=== PATIENT | female | born 1960 | race Caucasian/White ===

== ENCOUNTER 2024-02-01 13:43 | Emergency (ER) | payer OTHER, SELFPAY ==
--- NOTE | ~2024-02-01 | US_ITS ---
EXAMINATION: US venous doppler LE RT DATE: 02/01/2024 14:46 INDICATION: Right calf pain. TECHNIQUE: Grayscale ultrasound images without and with compression and Doppler ultrasound images of the right lower extremity veins were obtained. COMPARISON: None. FINDINGS: The visualized portions of right common femoral vein, profunda (deep) femoral vein, femoral vein, pop liteal vein, peroneal veins, posterior tibial veins, and greater saphenous vein outflow are patent. T here is a small Monahan's cyst. IMPRESSION: 1. No deep venous thrombosis. 2. Small Monahan's cyst. Reviewed, dictated and finalized at location A. [employer]
[2024-02-01 13:54] VITALS: BP 199/100; PULSE 93; RESP 18; TEMP 36.6; O2SAT 100
--- NOTE | 2024-02-01 14:00 | ED.EXTPRO ---
HPI - Extremity Problem General Chief complaint: Extremity Problem,Nontraumatic Stated complaint: Right calf pain, warmth, no redness. Time Seen by Provider: 02/01/24 19:14 Focused HPI: 63-year-old female with history of RA presents to the ED with concerns for DVT her right lower extremity. Patient states a few weeks ago she began having knee pain and her PCP. She was given steroids with concerns for an RA flare. States that did not improve so she went to her welding teacher who again give her another round of steroids. She came to the ED because now the pain seems to have worsened and is now in her calf associated swelling. She denies history of DVT. Denies chest pain or shortness of breath with palpitations, lightheadedness or dizziness. GENERAL: Well-appearing, well-nourished, and in no acute distress. HEAD: Normocephalic, atraumatic. CHEST: Clear to auscultation. ?No respiratory distress. HEART: Regular rate and rhythm.? NEURO: ?Alert and oriented x3. Patient screened in triage and initial orders placed.? ?Additional care and disposition to be based upon?diagnostic testing and treatment. Related Data Home Medications Medication Instructions Recorded Confirmed aspirin 81 mg tablet,delayed 81 mg PO DAILY 11/30/23 12/28/23 release (Adult Aspirin Regimen) atorvastatin 80 mg tablet 80 mg PO DAILY 11/30/23 12/28/23 leflunomide 20 mg tablet 20 mg PO DAILY 11/30/23 12/28/23 losartan 100 mg tablet 100 mg PO DAILY 11/30/23 12/28/23 meloxicam 15 mg tablet 15 mg PO DAILY 11/30/23 12/28/23 multivitamin (Daily Multi-Vitamin 1 tablet PO DAILY 11/30/23 12/28/23 tablet) Allergies Allergy/AdvReac Type Severity Reaction Status Date / Time hydrochlorothiazide AdvReac Intermediate dizzy Verified 02/01/24 13:45 Sulfa (Sulfonamide AdvReac kidney Verified 02/01/24 13:45 Antibiotics) problems PMFSH Past Medical History Medical History Anemia Arthritis Dyslipidemia Hypertension Rheumatoid arthritis Surgical History Surgical History No pertinent past surgical history Family History Family History Mother Hypertension Heart disease Father Heart disease Sibling Hypertension Heart disease Social History Social History Social History: 11/27/23 very confident with medical forms Smoking status: Unknown if ever smoked Do You Feel Safe in your Home?: Yes Lack of Transportation: No Lack of Food: Never True Current Housing: I Have Housing Concerned About Future Housing: No Difficulty Paying Gas/Electric Bills: No Difficulty Paying for Meds: No Currently Unemployed: No Education: High School Diploma/GED Difficulty w/ Childcare or Family Care: No Course Vital Signs Vital signs: Vital Signs Temperature 36.6 C 02/01/24 13:54 Pulse Rate 93 02/01/24 13:54 Respiratory Rate 18 02/01/24 13:54 Blood Pressure 199/100 H 02/01/24 13:54 Pulse Oximetry 100 02/01/24 13:54 Oxygen Delivery Room Air 02/01/24 13:54 Temperature 36.5 C 02/01/24 19:18 Pulse Rate 81 02/01/24 19:18 Respiratory Rate 16 02/01/24 19:18 Blood Pressure 199/96 H 02/01/24 19:18 Pulse Oximetry 98 02/01/24 19:18 Oxygen Delivery Room Air 02/01/24 19:18 MDM - Extremity (Nontraumatic) Lab Data 02/01/24 16:24 02/01/24 16:24 Labs: Lab Results 02/01/24 Range/Units 16:24 WBC 13.0 H (4.5-10.0) K/mm3 RBC 4.23 (4.2-5.4) M/mm3 Hgb 13.0 (12.0-15.0) g/dL Hct 39.8 (37.0-47.0) % MCV 94.1 (80-100) fl MCH 30.7 (26-34) pg MCHC 32.7 (32-36) g/dl RDW 14.4 (11.5-14.5) % Plt Count 333 (150-375) k/mm3 MPV 10.2 (7.4-10.4) fl Immature Gran % (Auto) 0.3 (0-0.5) % Neut % (Auto) 77.4 H (45.5-73.1) % Lymph % (Auto) 15.3 L (18.3-44.2) % [place] % (Auto) 6.5 (2.6-8.5) % Eos % (Auto) 0.0 (0-4.4) % Baso % (Auto) 0.5 (0.2-1.2) % Lymph # (Auto) 1.99 (0.9-3.2) K/mm3 [place] # (Auto) 0.8 H (0.1-0.6) K/mm3 Eos # (Auto) 0.0 (0-0.3) K/mm3 Baso # (Auto) 0.1 (0.0-0.1) K/mm3 Abs Immat Gran (auto) 0.04 H (0.00-0.031) K/mm3 Absolute Neuts (auto) 10.0 H (1.3-6.7) K/mm3 Absolute Nucleated RBC 0.000 (0.0-0.012) K/mm3 Nucleated RBC % 0.0 (0.0-0.2) % PT 13.2 (11.1-14.7) Seconds INR 1.0 APTT 23.4 (22.3-36.8) Seconds Sodium 136 L (137-145) mmol/L Potassium 4.4 (3.4-5.0) mmol/L Chloride 102 (98-107) mmol/L Carbon Dioxide 28 (22-30) mmol/L Anion Gap 6 (4-12) mmol/L BUN 15 (7-17) mg/dL Creatinine 0.80 (0.7-1.0) mg/dL Estim Creat Clear Calc Not Reportable Estimated GFR > 60 (59 - ) Glucose 131 H (65-110) mg/dL Calcium 9.4 (8.4-10.2) mg/dL Discharge Plan Discharge Prescriptions: No Action losartan 100 mg tablet 100 mg PO DAILY atorvastatin 80 mg tablet 80 mg PO DAILY aspirin [Adult Aspirin Regimen] 81 mg tablet,delayed release (DR/EC) 81 mg PO DAILY multivitamin [Daily Multi-Vitamin] Tablet 1 tablet PO DAILY meloxicam 15 mg tablet 15 mg PO DAILY leflunomide 20 mg tablet 20 mg PO DAILY prednisone 10 mg tablet 10 mg PO DAILY PRN (Reason: arthritis) Qty: 30 0RF Follow-up/Referrals: Dior Santos PA-C [Primary Care Provider] -
[2024-02-01 16:31] LABS: Basophils Absolute Auto 0.1 K/mm3 (0.0-0.1); Basophils Percent Auto 0.5 % (0.2-1.2); Hematocrit 39.8 % (37.0-47.0); Immature Granulocyte Absolute 0.04 K/mm3 (0.00-0.031); Immature Granulocyte Percent A 0.3 % (0-0.5); Lymphocytes Absolute Auto 1.99 K/mm3 (0.9-3.2); Lymphocytes Percent Auto 15.3 % (18.3-44.2); Mean Corpuscular HGB Conc 32.7 g/dl (32-36); Mean Corpuscular Hemoglobin 30.7 pg (26-34); Mean Corpuscular Volume 94.1 fl (80-100); Mean Platelet Volume 10.2 fl (7.4-10.4); Monocytes Absolute Auto 0.8 K/mm3 (0.1-0.6); Monocytes Percent Auto 6.5 % (2.6-8.5); Neutrophils Percent Auto 77.4 % (45.5-73.1); Platelet Count Result 333 k/mm3 (150-375); Red Blood Count 4.23 M/mm3 (4.2-5.4); Red Cell Distribution Width 14.4 % (11.5-14.5)
[2024-02-01 16:43] LABS: Anion Gap 6 mmol/L (4-12); Blood Urea Nitrogen 15 mg/dL (7-17); Calcium 9.4 mg/dL (8.4-10.2); Carbon Dioxide 28 mmol/L (22-30); Chloride 102 mmol/L (98-107); Estimated Glomerular Filt Rate > 60; Glucose 131 mg/dL (65-110); Potassium 4.4 mmol/L (3.4-5.0); Sodium 136 mmol/L (137-145)
[2024-02-01 16:44] LABS: Partial Thromboplastin Time 23.4 Seconds (22.3-36.8); Prothrombin Time 13.2 Seconds (11.1-14.7)
[2024-02-01 17:59] VITALS: BP 128/79; PULSE 72; RESP 18; TEMP 36.4; O2SAT 98
[2024-02-01 19:18] VITALS: BP 199/96; PULSE 81; RESP 16; TEMP 36.5; O2SAT 98
--- NOTE | 2024-02-01 19:44 | ED.GENADULT ---
HPI - General Adult General Chief complaint: Extremity Problem,Nontraumatic Stated complaint: Right calf pain, warmth, no redness. Time Seen by Provider: 02/01/24 19:14 History of Present Illness HPI narrative: Patient is a 63-year-old female who presents emergency department chief complaint of right calf pain. The patient reports that she has been having pain in the right calf area reports she was seen by her primary doctor and her engineering officer was started on a steroid pulse with initially having knee pain patient reports her knee pain is improved now has pain in the right calf the patient states also been swollen since she has been on steroids. Patient denies fever denies chest pain denies shortness of breath. Related Data Home Medications Medication Instructions Recorded Confirmed aspirin 81 mg tablet,delayed 81 mg PO DAILY 11/30/23 12/28/23 release (Adult Aspirin Regimen) atorvastatin 80 mg tablet 80 mg PO DAILY 11/30/23 12/28/23 leflunomide 20 mg tablet 20 mg PO DAILY 11/30/23 12/28/23 losartan 100 mg tablet 100 mg PO DAILY 11/30/23 12/28/23 meloxicam 15 mg tablet 15 mg PO DAILY 11/30/23 12/28/23 multivitamin (Daily Multi-Vitamin 1 tablet PO DAILY 11/30/23 12/28/23 tablet) Allergies Allergy/AdvReac Type Severity Reaction Status Date / Time hydrochlorothiazide AdvReac Intermediate dizzy Verified 02/01/24 13:45 Sulfa (Sulfonamide AdvReac kidney Verified 02/01/24 13:45 Antibiotics) problems Review of Systems Review of Systems: A 10 system review of systems was completed on the patient and is negative except for what is stated in the HPI. Nursing and ancillary documentation was reviewed. [facility] Past Medical History Medical History Anemia Arthritis Dyslipidemia Hypertension Rheumatoid arthritis Surgical History Surgical History No pertinent past surgical history Family History Family History Mother Hypertension Heart disease Father Heart disease Sibling Hypertension Heart disease Social History Social History Social History: 11/27/23 very confident with medical forms Smoking status: Unknown if ever smoked Do You Feel Safe in your Home?: Yes Lack of Transportation: No Lack of Food: Never True Current Housing: I Have Housing Concerned About Future Housing: No Difficulty Paying Gas/Electric Bills: No Difficulty Paying for Meds: No Currently Unemployed: No Education: High School Diploma/GED Difficulty w/ Childcare or Family Care: No Exam Narrative: GENERAL: Well-appearing, well-nourished, and in no acute distress. HEAD: Normocephalic, atraumatic. EYES: PERRLA and EOMI. ENT: Nares clear, no rhinorrhea or epistaxis. Mucous membranes moist. NECK: Supple. CHEST: Clear to auscultation. No respiratory distress. HEART: Regular rate and rhythm. No murmur heard. Normal peripheral pulses. ABDOMEN: Soft, nontender, nondistended, normal active bowel sounds. EXTREMITIES: Normal range of motion. Plus one edema, right calf. Negative Ovalle test SKIN: Warm, dry, no rash. NEURO: No focal deficits. Alert and oriented x3. PSYCH: Normal mood and affect. Course Vital Signs Vital signs: Vital Signs Temperature 36.6 C 02/01/24 13:54 Pulse Rate 93 02/01/24 13:54 Respiratory Rate 18 02/01/24 13:54 Blood Pressure 199/100 H 02/01/24 13:54 Pulse Oximetry 100 02/01/24 13:54 Oxygen Delivery Room Air 02/01/24 13:54 Temperature 36.5 C 02/01/24 19:18 Pulse Rate 81 02/01/24 19:18 Respiratory Rate 16 02/01/24 19:18 Blood Pressure 199/96 H 02/01/24 19:18 Pulse Oximetry 98 02/01/24 19:18 Oxygen Delivery Room Air 02/01/24 19:18 Medical Decision Making [facility] Narrative Medical decision making narrative: differential diagnosis includes peripheral edema, DVT, Achilles tear, laboratory studies were obtained on the patient showed a normal CBC CMP was within normal limits renal function was normal venous duplex showed 1. No deep venous thrombosis. 2. Small Monahan's cyst. Vital Signs Vital Signs: Vital Signs Temperature 36.6 C 02/01/24 13:54 Pulse Rate 93 02/01/24 13:54 Respiratory Rate 18 02/01/24 13:54 Blood Pressure 199/100 H 02/01/24 13:54 Pulse Oximetry 100 02/01/24 13:54 Oxygen Delivery Room Air 02/01/24 13:54 Temperature 36.5 C 02/01/24 19:18 Pulse Rate 81 02/01/24 19:18 Respiratory Rate 16 02/01/24 19:18 Blood Pressure 199/96 H 02/01/24 19:18 Pulse Oximetry 98 02/01/24 19:18 Oxygen Delivery Room Air 02/01/24 19:18 Lab Data 02/01/24 16:24 02/01/24 16:24 Labs: Lab Results 02/01/24 Range/Units 16:24 WBC 13.0 H (4.5-10.0) K/mm3 RBC 4.23 (4.2-5.4) M/mm3 Hgb 13.0 (12.0-15.0) g/dL Hct 39.8 (37.0-47.0) % MCV 94.1 (80-100) fl MCH 30.7 (26-34) pg MCHC 32.7 (32-36) g/dl RDW 14.4 (11.5-14.5) % Plt Count 333 (150-375) k/mm3 MPV 10.2 (7.4-10.4) fl Immature Gran % (Auto) 0.3 (0-0.5) % Neut % (Auto) 77.4 H (45.5-73.1) % Lymph % (Auto) 15.3 L (18.3-44.2) % [place] % (Auto) 6.5 (2.6-8.5) % Eos % (Auto) 0.0 (0-4.4) % Baso % (Auto) 0.5 (0.2-1.2) % Lymph # (Auto) 1.99 (0.9-3.2) K/mm3 [place] # (Auto) 0.8 H (0.1-0.6) K/mm3 Eos # (Auto) 0.0 (0-0.3) K/mm3 Baso # (Auto) 0.1 (0.0-0.1) K/mm3 Abs Immat Gran (auto) 0.04 H (0.00-0.031) K/mm3 Absolute Neuts (auto) 10.0 H (1.3-6.7) K/mm3 Absolute Nucleated RBC 0.000 (0.0-0.012) K/mm3 Nucleated RBC % 0.0 (0.0-0.2) % PT 13.2 (11.1-14.7) Seconds INR 1.0 APTT 23.4 (22.3-36.8) Seconds Sodium 136 L (137-145) mmol/L Potassium 4.4 (3.4-5.0) mmol/L Chloride 102 (98-107) mmol/L Carbon Dioxide 28 (22-30) mmol/L Anion Gap 6 (4-12) mmol/L BUN 15 (7-17) mg/dL Creatinine 0.80 (0.7-1.0) mg/dL Estim Creat Clear Calc Not Reportable Estimated GFR > 60 (59 - ) Glucose 131 H (65-110) mg/dL Calcium 9.4 (8.4-10.2) mg/dL Discharge Plan Discharge Clinical Impression: Edema, peripheral, Monahan's cyst Patient Disposition: Home, Self-Care Condition: Stable Instructions: Antibiotic Form, Monahan Cyst (ED), Leg Edema (ED) Additional Instructions: your ultrasound showed no evidence of DVT did show a small Monahan's cyst. Please rest and elevate the right leg. Prescriptions: No Action losartan 100 mg tablet 100 mg PO DAILY atorvastatin 80 mg tablet 80 mg PO DAILY aspirin [Adult Aspirin Regimen] 81 mg tablet,delayed release (DR/EC) 81 mg PO DAILY multivitamin [Daily Multi-Vitamin] Tablet 1 tablet PO DAILY meloxicam 15 mg tablet 15 mg PO DAILY leflunomide 20 mg tablet 20 mg PO DAILY prednisone 10 mg tablet 10 mg PO DAILY PRN (Reason: arthritis) Qty: 30 0RF Follow-up/Referrals: Dior Santos PA-C [Primary Care Provider] - Time of Disposition: 19:47
== END 2024-02-01 19:57 | disposition home or self-care (01) ==
PROVIDERS: Physician Assistant; Emergency Provider Emergency Medicine; PCP Physician Assistant Medical
DX: R60.9 Edema, unspecified (principal); M71.21 Synovial cyst of popliteal space [Baker], right knee; Z79.82 Long term (current) use of aspirin; E78.5 Hyperlipidemia, unspecified; I10 Essential (primary) hypertension; M06.9 Rheumatoid arthritis, unspecified
CPT/HCPCS: 36415; 80048; 85025; 85610; 85730; 93971; 99284